=== PATIENT | male | born 1960 | race Caucasian/White ===

== ENCOUNTER → 2017-07-01 14:31 | Emergency (ER) | payer SELFPAY ==
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
[2017-07-01 15:59] VITALS: BP 131/73
== END | disposition home or self-care (01) ==
LOC: ED 14:31
DX: Z04.1 Encounter for examination and observation following transport accident (principal)
CPT/HCPCS: 99282

== ENCOUNTER 2017-09-08 07:25 | Emergency (ER) | payer BC ==
[2017-09-08 08:18] LABS: Urine Bilirubin Negative (Negative); Urine Glucose Negative (Negative); Urine Nitrite Negative (Negative)
[2017-09-08 08:29] LABS: Hematocrit 43 % (42-52); Hemoglobin 14.6 g/dl (14.0-18.0); Mean Corpuscular HGB Conc 34 g/dl (31-36); Mean Corpuscular Hemoglobin 29 pg (27-31); Mean Corpuscular Volume 86 fL (80-94); Mean Platelet Volume 7 um3 (7.4-10.4); Red Blood Count 4.97 10^6/ul (4.0-5.4); Red Cell Distribution Width 14 % (10.5-15); White Blood Count 8.7 10^3/ul (3.5-10.8)
[2017-09-08 08:57] LABS: Albumin 4.2 g/dL (3.2-5.2); BUN/Creatinine Ratio 8.1 (8-20); C Reactive Protein 1.92 mg/L (< 5.00); Calcium 9.2 mg/dL (8.6-10.3); EGFR African American 100.2 (>60); EGFR Non-African American 77.9 (>60); Globulin 3.3 g/dL (2-4); Potassium 3.7 mmol/L (3.5-5.0); Total Protein 7.5 g/dL (6.4-8.9)
[2017-09-08] MEDS ORDERED: Ondansetron INJ* 2 MG/ML VIAL IV ONE (09:38)
[2017-09-08] MEDS ORDERED: Morphine INJ* 4 MG/ML 1 ML CARPUJECT IV ONE (09:38)
[2017-09-08 09:55] VITALS: BP 133/70
--- NOTE | 2017-09-08 10:37 | RAD ---
INDICATION: Frequent urination. Bilateral flank pain. History of urolithiasis. Recent prep for colonoscopy. COMPARISON: October 04, 2009 TECHNIQUE: Multidetector CT images were obtained from the lung bases to the ischial tuberosities. Evaluation of the viscera is limited without IV contrast. Multiplanar reformation. REPORT: Very small bilateral subpleural basilar lung nodules measuring up to 3 mm maximum dimension are unchanged compared with the 2009 exam without concern. Mild decreased density of the liver relative to the spleen consistent with fatty infiltration. No CT abnormality of the gallbladder. Negative for biliary dilatation. Unremarkable pancreas. Splenule at the hilum of the unremarkable dominant spleen. Negative for CT abnormality of the upper GI or small bowel. While the appendix is not discretely visualized, there is no inflammatory change in the right lower quadrant or region of the tip of the cecum to suggest presence of an acute inflammatory process. Unremarkable largely decompressed colon. Negative for ascites or free air. Postsurgical change of previous inguinal hernia repairs. No significant hernias evident. Normal adrenal glands. 2.8 cm simple cortical cyst mid pole RIGHT kidney. Smaller cortical cyst at the LEFT kidney. 2 mm upper pole and midpole calyceal stones of the RIGHT kidney. Bilateral mild dilatation of the intrarenal collecting systems without ureteral dilatation or ureteral stone. Distended urinary bladder without additional CT abnormality of the urinary bladder. Enlarged prostate measuring up to 5.0 cm AP by 4.6 cm transverse by 5.4 cm cephalocaudal for estimated volume of 66 mL projects into the urinary bladder significantly increased over the prior exam. Central coarse calcifications at the prostate. Symmetric seminal vesicles. Negative for lymphadenopathy. Normal diameter abdominal aorta and iliac arteries. Physiologic partial distention of the IVC. Negative for suspicious focal osseous lesions. IMPRESSION: 1. Nonobstructing small intrarenal collecting system stones at the RIGHT kidney. No ureteral stones evident. Mild dilatation of the bilateral intrarenal collecting systems new compared with the 2009 exam is likely secondary to chronic bladder outlet obstruction due to prostatomegaly. Moderately distended urinary bladder. 2. Fatty infiltration of the liver.
--- NOTE | 2017-09-08 17:11 | ED ---
German Patino Angela, scribed for Holden Calvo MD on 09/08/17 at 0743 . GI/ HPI - HPI Summary HPI Summary: This pt is a 56 y/o male presenting to [facility] c/o retaining urine and bilateral flank pain since 0200 today. Pt reports he had been prepping for a colonoscopy today scheduled at 10:30 AM. Pt notes that he began to feel like he is not emptying all the urine he has. He last urinated today, 5 minutes ago, to give a urine sample. Pt denies nausea, vomiting, diarrhea. Pt is currently taking tamsulosin for enlarged prostate. - History of Current Complaint Chief Complaint: EDFlankPain Time Seen by Provider: 09/08/17 07:34 Stated Complaint: FLANK PAIN , Hx Obtained From: Patient Onset/Duration: Started Hours Ago Timing: Lasting Hours Severity: Moderate Current Severity: Severe Pain Intensity: 8 Location of Pain: Flank - bilateral Pain Characteristics: Sharp Associated Signs and Symptoms: Positive: Flank Pain - bilateral, UTI Symptoms - urine retention. Negative: Nausea, Vomiting, Diarrhea, Fever - Allergy/Home Medications Allergies/Adverse Reactions: Allergies Allergy/AdvReac Type Severity Reaction Status Date / Time No Known Allergies Allergy Verified 07/01/17 15:20 PMH/Surg Hx/FS Hx/Imm Hx Endocrine/Hematology History: Denies: Hx Anticoagulant Therapy, Hx Diabetes Cardiovascular History: Reports: Hx Hypertension Infectious Disease History: No Infectious Disease History: Denies: Traveled Outside the [place] in Last 30 Days - Family History Known Family History: Positive: Cardiac Disease - Social History Alcohol Use: None Substance Use Type: Reports: None Smoking Status (MU): Never Smoked Tobacco Review of Systems Negative: Fever, Chills Eyes: Negative ENT: Negative Cardiovascular: Negative Negative: Shortness Of Breath, Cough Negative: Vomiting, Diarrhea, Nausea Positive: flank pain - bilateral, other - urine retention Skin: Negative Neurological: Negative All Other Systems Reviewed And Are Negative: Yes Physical Exam - Summary Physical Exam Summary: VITAL SIGNS: Reviewed. GENERAL: Patient is a well-developed and nourished male who is lying comfortable in the stretcher. Patient is not in any acute respiratory distress. HEAD AND FACE: No signs of trauma. No ecchymosis, hematomas or skull depressions. No sinus tenderness. EYES: PERRLA, EOMI x 2, No injected conjunctiva, no nystagmus. EARS: Hearing grossly intact. Ear canals and tympanic membranes are within normal limits. MOUTH: Oropharynx within normal limits. NECK: Supple, trachea is midline, no adenopathy, no JVD, no carotid bruit, no c- spine tenderness, neck with full ROM. CHEST: Symmetric, no tenderness at palpation LUNGS: Clear to auscultation bilaterally. No wheezing or crackles. CVS: Regular rate and rhythm, S1 and S2 present, no murmurs or gallops appreciated. ABDOMEN: Soft, non-tender. There is distension in the lower abdomen. There is some bilateral costovertebral angle tenderness. No rebound no guarding, and no masses palpated. Bowel sounds are normal. EXTREMITIES: FROM in all major joints, no edema, no cyanosis or clubbing. NEURO: Alert and oriented x 3. No acute neurological deficits. Speech is normal and follows commands. SKIN: Dry and warm Triage Information Reviewed: Yes Vital Signs On Initial Exam: Initial Vitals Temp Pulse Resp BP Pulse Ox 97.8 F 93 20 148/81 98 09/08/17 07:27 09/08/17 07:27 09/08/17 07:27 09/08/17 07:27 09/08/17 07:27 Vital Signs Reviewed: Yes Diagnostics - Vital Signs Vital Signs Temp Pulse Resp BP Pulse Ox 09/08/17 07:27 97.8 F 93 20 148/81 98 - Laboratory Lab Results: Lab Results 09/08/17 09/08/17 09/08/17 Range/Units 08:05 08:10 08:10 WBC 8.7 (3.5-10.8) 10^3/ul RBC 4.97 (4.0-5.4) 10^6/ul Hgb 14.6 (14.0-18.0) g/dl Hct 43 (42-52) % MCV 86 (80-94) fL MCH 29 (27-31) pg MCHC 34 (31-36) g/dl RDW 14 (10.5-15) % Plt Count 355 (150-450) 10^3/ul MPV 7 L (7.4-10.4) um3 Neut % (Auto) 80.3 (38-83) % Lymph % (Auto) 12.5 L (25-47) % [place] % (Auto) 5.8 (1-9) % Eos % (Auto) 0.7 (0-6) % Baso % (Auto) 0.7 (0-2) % Absolute Neuts (auto) 7.0 (1.5-7.7) 10^3/ul Absolute Lymphs (auto) 1.1 (1.0-4.8) 10^3/ul Absolute Monos (auto) 0.5 (0-0.8) 10^3/ul Absolute Eos (auto) 0.1 (0-0.6) 10^3/ul Absolute Basos (auto) 0.1 (0-0.2) 10^3/ul Absolute Nucleated RBC 0 10^3/ul Nucleated RBC % 0 Sodium 137 (133-145) mmol/L Potassium 3.7 (3.5-5.0) mmol/L Chloride 104 (101-111) mmol/L Carbon Dioxide 27 (22-32) mmol/L Anion Gap 6 (2-11) mmol/L BUN 8 (6-24) mg/dL Creatinine 0.99 (0.67-1.17) mg/dL Est GFR ( Amer) 100.2 (>60) Est GFR (Non-Af Amer) 77.9 (>60) BUN/Creatinine Ratio 8.1 (8-20) Glucose 119 H (70-100) mg/dL Calcium 9.2 (8.6-10.3) mg/dL Total Bilirubin 1.00 (0.2-1.0) mg/dL AST 23 (13-39) U/L ALT 31 (7-52) U/L Alkaline Phosphatase 59 (34-104) U/L C-Reactive Protein 1.92 (< 5.00) mg/L Total Protein 7.5 (6.4-8.9) g/dL Albumin 4.2 (3.2-5.2) g/dL Globulin 3.3 (2-4) g/dL Albumin/Globulin Ratio 1.3 (1-3) Lipase 21 (11.0-82.0) U/L Urine Color Straw Urine Appearance Clear Urine pH 7.0 (5-9) Ur Specific [place] 1.001 L (1.010-1.030) Urine Protein Negative (Negative) Urine Ketones Negative (Negative) Urine Blood Negative (Negative) Urine Nitrate Negative (Negative) Urine Bilirubin Negative (Negative) Urine Urobilinogen Negative (Negative) Ur Leukocyte Esterase Negative (Negative) Urine Glucose Negative (Negative) Result Diagrams: 09/08/17 08:10 09/08/17 08:10 Lab Statement: Any lab studies that have been ordered have been reviewed, and results considered in the medical decision making process. - CT Abdomen/pelvis CT CT Interpretation: Positive (See Comments) - IMPRESSION: 1. Nonobstructing small intrarenal collecting system does at the RIGHT kidney. No ureteral stones evident. Mild dilatation of the bilateral intrarenal collecting systems new compared with the 2009 exam is likely secondary to chornic bladder outlet obstruction due to prostatomegaly. Moderately distended urinary bladder. 2. Fatty infiltration of the liver. ED physician has reviewed this radiology report and agrees. CT Interpretation Completed By: Radiologist Re-Evaluation - Re-Evaluation First Eval Re-Evaluation Time: 10:42 Comment: I discussed with the pt that Dr. Cordova would like to see him in her office today for a possible colonoscopy. GIGU Course/Dx - Course Assessment/Plan: This pt is a 56 y/o male presenting to [facility] c/o retaining urine and bilateral flank pain since 0200 today. Pt reports he had been prepping for a colonoscopy today scheduled at 10:30 AM. Pt notes that he began to feel like he is not emptying all the urine he has. He last urinated today, 5 minutes ago, to give a urine sample. Pt denies nausea, vomiting, diarrhea. Test results without any significant abnormalities except for glucose of 119. UA is negative for a UTI. In the ED course, the pt was given IV fluids, Zofran and morphine for the pain. I did an abdominal CT. CT shows 1. Nonobstructing small intrarenal collecting system does at the RIGHT kidney. No ureteral stones evident. Mild dilatation of the bilateral intrarenal collecting systems new compared with the 2009 exam is likely secondary to chornic bladder outlet obstruction due to prostatomegaly. Moderately distended urinary bladder. 2. Fatty infiltration of the liver. Initially the pt had urinary retention, but later he was able to urinate, and did it 5 more times in the ED. He had a bladder scan post void and had 200 ccs of urine. The pt is asymptomatic and alert and oriented x3. I discussed the case with Dr. Cordova, she recommends the pt to be discharged to her office for a possible colonoscopy today. Since the pt is feeeling better with no symptoms, he will be discharged to Dr. Sal office. Pt is hemodynamically stable, alert and oriented x3. Pt is currently taking tamsulosin for enlarged prostate. - Diagnoses Differential Diagnoses - Male: BPH, Ureteral Calculi, Urinary Tract Infection Provider Diagnoses: Bilateral flank pain - Physician Notifications Discussed Care Of Patient With: Lissette Cordova Time Discussed With Above Provider: 09:53 Instructed by Provider To: Other - I discussed the pt's case with Dr. Cordova. She would like to see the pt at her office today for a possible colonoscopy today. Discharge - Discharge Plan Condition: Stable Disposition: HOME Patient Education Materials: Flank Pain (ED) Referrals: Justus Guerrero MD [Primary Care Provider] - Additional Instructions: Please follow up with your primary care provider. The documentation as recorded by the German ansari Angela accurately reflects the service I personally performed and the decisions made by , Holden Calvo MD.
== END 2017-09-08 10:58 | disposition home or self-care (01) ==
LOC: ED 07:25
DX: R10.84 Generalized abdominal pain (principal); R33.9 Retention of urine, unspecified
CPT/HCPCS: 36415; 74176; 80053; 81003; 83690; 85025; 86140; 96374; 96375; 99282; J2270; J2405